=== PATIENT | female | born 1945 | race Caucasian/White ===

== ENCOUNTER → 2016-05-27 | Outpatient (CLI) | payer OTHER, MEDICARE ==
[~2016-05-27] MED LIST: AUGMENTIN875 MG PO; CAPTOPRIL25 MG PO; ENALAPRIL MALEA10 MG PO; GABAPENTIN800 MG PO; LASIX40 MG PO; METFORMIN HCL500 MG PO; MULTIVITAMIN1 EAC1 PO; TYLENOL EXTRA500 MG PO; VICODIN 5-3001 EACH PO
== END | disposition home or self-care (01) ==
DX: M17.11 Unilateral primary osteoarthritis, right knee (principal); R26.2 Difficulty in walking, not elsewhere classified; M62.81 Muscle weakness (generalized); M25.661 Stiffness of right knee, not elsewhere classified
CPT/HCPCS: 97110 GP; 97150 GO; 97161 GP; 97165 GO; G8978 GP; G8979 GP; G8980 GP; G8987 GO; G8988 GO; G8989 GO

== ENCOUNTER 2016-08-30 10:06 | Emergency (ER) | payer OTHER, MEDICARE ==
[~2016-08-30] VITALS: Ht 170.2 cm; Wt 86.5 kg
[~2016-08-30 10:06] MED LIST changes: +AMARYL2 MG PO; +CELEBREX200 MG PO; +COREG25 M1 PO; +FEOSOL325 MG PO; +ULTRAM50 MG PO
[2016-08-30 12:34] VITALS: BP 115/62
== END 2016-08-30 12:45 | disposition home or self-care (01) ==
LOC: EME 10:06
DX: M17.11 Unilateral primary osteoarthritis, right knee (principal); E11.9 Type 2 diabetes mellitus without complications; I10 Essential (primary) hypertension; Z79.84 Long term (current) use of oral hypoglycemic drugs; Z79.899 Other long term (current) drug therapy
CPT/HCPCS: 73564; 99281; 99284

== ENCOUNTER 2017-04-06 09:54 | Day surgery (SDC) | payer OTHER, MEDICARE ==
[~2017-04-06] VITALS: Ht 167.6 cm; Wt 86.0 kg
[~2017-04-06 09:54] MED LIST changes: +AMLODIPINE BESYL5 MG PO; +GABAPENTIN300 MG PO
== END 2017-04-06 18:37 | disposition home or self-care (01) ==
LOC: CATH 09:54
PROVIDERS: Internal Medicine Cardiovascular Disease
DX: Z01.810 Encounter for preprocedural cardiovascular examination (principal); I42.0 Dilated cardiomyopathy; I25.5 Ischemic cardiomyopathy; E11.9 Type 2 diabetes mellitus without complications; I10 Essential (primary) hypertension; E78.2 Mixed hyperlipidemia; E66.9 Obesity, unspecified; Z68.30 Body mass index [BMI] 30.0-30.9, adult; Z77.22 Contact with and (suspected) exposure to environmental tobacco smoke (acute) (chronic); E03.9 Hypothyroidism, unspecified; Z79.82 Long term (current) use of aspirin
CPT/HCPCS: 82948; C1769; C1887; C1894; J1644; J2250; J3010